=== PATIENT | male | born 1965 | race Caucasian/White ===

== ENCOUNTER 2019-10-10 12:27 | Emergency (ER) | payer SELFPAY ==
[~2019-10-10] VITALS: Ht 160 cm; Wt 61.2 kg
[2019-10-10 12:30] VITALS: BP 140/86
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
[2019-10-10 13:18] VITALS: BP 140/86
--- NOTE | 2019-10-10 13:19 | NUR ---
PATIENT BIB [facility] POLICE DEPT. PATIENT EXAMINED BY . PATIENT MEDICALLY CLEARED AND RELEASED IN CUSTODY IN STABLE CONDITION. ORIGINAL PRE-BOOK FORM GIVEN TO OFFICER .
== END 2019-10-10 13:19 ==
LOC: MED 12:27
DX: Z02.89 Encounter for other administrative examinations (principal); V89.2XXA Person injured in unspecified motor-vehicle accident, traffic, initial encounter; Y93.89 Activity, other specified; Y92.411 Interstate highway as the place of occurrence of the external cause; Y99.8 Other external cause status
CPT/HCPCS: 99283